=== PATIENT | female | born 1955 | race African-American/Black ===

== ENCOUNTER 2020-09-01 06:48 | Observation (INO) | payer MEDICARE, OTHER ==
[2020-08-28 16:15] LABS: BASOPHILS # (AUTO) 0.1 (0.0-0.1); BASOPHILS % 0.6 % (0.0-1.0); EOSINOPHILS # (AUTO) 0.1 (0.0-0.4); EOSINOPHILS % 1.3 % (0.0-6.0); HEMATOCRIT 43.3 % (34.2-44.1); LYMPHOCYTES # (AUTO) 2.2 (1.0-3.2); LYMPHOCYTES % 27.9 % (18.0-39.1); MEAN CORPUSCULAR HEMOGLOBIN 29.5 pg (28-32); MEAN CORPUSCULAR HGB CONC 32.3 g/dL (31-35); MEAN CORPUSCULAR VOLUME 91.2 fL (81-99); MONOCYTES # (AUTO) 0.5 (0.2-0.8); MONOCYTES % 5.9 % (4.4-11.3); NEUTROPHILS # (AUTO) 5.1 (2.1-6.9); NEUTROPHILS % 63.9 % (38.7-80.0); PLATELET COUNT 250 x10e3/uL (140-360); RED BLOOD COUNT 4.75 x10e6/uL (3.6-5.1); RED CELL DISTRIBUTION WIDTH 13.5 % (11.7-14.4)
[2020-08-28 16:30] LABS: BLOOD UREA NITROGEN 13 mg/dL (7-26); BUN/CREATININE RATIO 12 (6-25); CALCIUM 9.8 mg/dL (8.4-10.2); CARBON DIOXIDE 23 mmol/L (22-29); CHLORIDE 103 mmol/L (98-107); CREATININE, SERUM 1.08 mg/dL (0.57-1.11); EST GLOMERULAR FILTRATION RATE > 60 ML/MIN (60-); GLUCOSE 209 mg/dL (74-118); SODIUM 139 mmol/L (136-145)
--- NOTE | 2020-08-28 16:30 | Diagnostic Imaging Report ---
EXAMINATION: CHEST 2 VIEWS INDICATION: Pre-operative COMPARISON: None FINDINGS: LINES/TUBES:None LUNGS:The lungs are well-inflated. No focal consolidation or pulmonary edema. PLEURA:No pleural effusion or pneumothorax. MEDIASTINUM:The cardiomediastinal silhouette appears normal in size and shape. BONES/SOFT TISSUES:No acute osseous injury. ABDOMEN:No free air under the diaphragm. IMPRESSION: No focal pneumonia or pulmonary edema. Signed by: Donna Bishop MD on 08/28/2020 4:26 PM
[~2020-09-01] VITALS: Ht 170.2 cm; Wt 76.8 kg
[~2020-09-01 06:48] MED LIST: BUSPIRONE HCL15 MG PO; CELEBREX200 MG PO; JARDIANCE10 MG PO; LANTUS 3ML100 UNITS/ SC; LEVOTHYROXINE75 MCG PO; LISINOPRIL5 MG PO; METOPROLOL TART50 MG PO; MIRTAZAPINE15 MG PO; NOVOLOG100 UNIT/1 SC; QUETIAPINE FUM200 MG PO; SIMVASTATIN20 MG PO; ULTRAM50 MG PO
[2020-09-01] MEDS ORDERED: DEXAMETHASONE SOD PHOS 10 MG/1 ML VIAL ONE (07:03)
[2020-09-01] MEDS ORDERED: CELECOXIB 200 MG CAP ONE (07:03)
[2020-09-01] MEDS ORDERED: GABAPENTIN 300 MG CAP ONE (07:04)
[2020-09-01] MEDS ORDERED: CEFAZOLIN SOD 1 GM/NS 50ML 100 ML IV ONE (07:04)
[2020-09-01] MEDS ORDERED: BUPIVACAINE 7.5MG/ML /DEXTROSE 82.5MG/ML 2 ML AMP INJ ONE (07:21)
[2020-09-01] MEDS ORDERED: ROPIVACAINE 246.25 MG, EPINEPHRINE HCL 1:1000 1ML 0.5 MG, CLONIDINE HCL 0.08 MG, KETORO... INJ ONE ×5 (08:00)
[2020-09-01] MEDS ORDERED: VANCOMYCIN HCL 1,000 MG ONE (08:18)
[2020-09-01] MEDS ORDERED: SODIUM CHLORIDE 0.9% 500ML 500 ML ONE (08:19)
[2020-09-01] MEDS ORDERED: TRANEXAMIC ACID 1,000 MG/10 ML ML ONE (08:19)
[2020-09-01] MEDS ORDERED: KETOROLAC TROMETHAMINE 30 MG/ML VIAL IV PRN (09:45)
[2020-09-01] MEDS ORDERED: DOCUSATE SODIUM 100 MG CAP PO PRN (09:45)
[2020-09-01] MEDS ORDERED: ZOLPIDEM TARTRATE 5 MG TAB PO PRN (09:45)
[2020-09-01] MEDS ORDERED: ONDANSETRON HCL INJ 2MG/ML 2ML 2 MG/ML VIAL IV PRN (09:45)
[2020-09-01] MEDS ORDERED: HYDROCODONE/APAP 5MG-325MG TAB PO PRN (09:45)
[2020-09-01] MEDS ORDERED: DIPHENHYDRAMINE HCL INJ 50 MG/ML VIAL IV PRN (09:45)
[2020-09-01] MEDS ORDERED: ACETAMINOPHEN 650 MG SUPP PR PRN (09:45)
--- OUTSIDE RECORDS SUMMARY | 2020-09-01 10:33 | XMS REPORT | Clinical Summary ---
Author Author [facility] Organization [facility] Address Unknown Phone Unavailable Care Team Providers Care Perch Mender Name Role Phone Asked, No Pcp PCP Unavailable Allergies No Known Active Allergies Medications End Date Status Medication Sig Dispensed Refills Start Date Active OXcarbazepine (TRILEPTAL) TK 1 T PO BID 0 12/21 300 MG tablet 9 Active levothyroxine (SYNTHROID) TAKE ONE 0 02/18 75 mcg tablet TABLET BY 3 MOUTH ONE TIME DAILY Active cariprazine 6 mg capsule Take by 0 mouth. Active simvastatin (ZOCOR) 20 mg Take 20 mg by 0 tablet mouth nightly. 05/26/2021 Active lisinopriL (PRINIVIL) 5 Take 1 tablet 90 tablet 3 mg tabletIndications: (5 mg total) 0 Essential hypertension by mouth daily. Active blood-glucose meter To check 1 each 0 miscIndications: Type 2 sugars TID 0 diabetes mellitus with hyperglycemia, with long-term current use of insulin ([facility]) Active blood sugar diagnostic To test 200 strip 11 strips strip test sugars TID. 0 stripsIndications: Type 2 diabetes mellitus with hyperglycemia, with long-term current use of insulin ([facility]) 07/13/2021 Active empagliflozin 10 mg Take 1 tablet 30 tablet 3 06/21 tablet tabletIndications: (10 mg total) 0 Type 2 diabetes mellitus by mouth with hyperglycemia, with daily. long-term current use of insulin ([facility]) 07/13/2021 Active mirtazapine (REMERON) 30 Take 1 tablet 90 tablet 3 MG tabletIndications: (30 mg total) 0 Primary insomnia by mouth nightly. 07/13/2021 Active metoprolol succinate XL Take 1 tablet 90 tablet 3 (Toprol XL) 50 mg 24 hr (50 mg total) 0 tabletIndications: by mouth Essential hypertension daily. Active lancets miscIndications: Dx:E11.9 100 each 3 0 Type 2 diabetes mellitus As covered 0 with hyperglycemia, with per long-term current use of insurance. insulin (HCC) Use one lancet to check blood sugar levels 1-2 times daily. 05/26/2020 Discontinued (Reorder) metoprolol succinate XL Take 25 mg by 0 (TOPROL-XL) 25 mg 24 hr mouth daily. tablet 05/26/2020 Discontinued (Dose adjustmen t) lisinopriL (PRINIVIL) 5 Take 5 mg by 0 mg tablet mouth daily. 07/13/2020 Discontinued (Reorder) mirtazapine (REMERON) 30 Take 30 mg by 0 MG tablet mouth nightly. 07/13/2020 Discontinued (Dose adjustmen t) metoprolol succinate XL Take 1 tablet 30 tablet 3 (TOPROL-XL) 25 mg 24 hr (25 mg total) 0 tabletIndications: by mouth Essential hypertension daily. 07/16/2020 Discontinued (Reorder) lancets miscIndications: Dx:E11.9 100 each 3 0 Type 2 diabetes mellitus As covered 0 with hyperglycemia, with per long-term current use of insurance. insulin (HCC) Use one lancet to check blood sugar levels 1-2 times daily. 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 P atient also wanted to try PO medication. Sent rx for jardiance. HLD (hyperlipidemia) Hypertension Last Assessment & Plan: Hypertension is unchanged. Continue current treatment regimen. Inc rease dose of metoprolol further and c/w lisinopril. Blood pressure will be reassessed at th e next regular appointment. Encounters Care Team Description Date Type Specialty Sandy Dixon MA Type 2 diabetes mellitus with hyperglyce vinh, with long-term current use of insulin ([facility]) 07/16/2020 Orders Only Family Medicine Ezekiel Ayers MA Type 2 diabetes mellitus with hyperglyce vinh, with long-term current use of insulin ([facility]) (Primary Dx) 07/14/2020 Refill Family Medicine Sepideh Linda MD Preop examination (Primary Dx); Essential hypertension; Type 2 diabetes mellitus with hyperglycemia, with long-term current use of insulin (HCC); Primary insomnia 07/13/2020 Office Visit Family Medicine 07/13/2020 Travel 07/09/2020 Travel Sepideh Linda MD 07/03/2020 Telephone Family Medicine 06/01/2020 Travel Sepideh Linda MD Left leg pain (Primary Dx); Recurrent major depressive disorder, in partial remission (HCC); Type 2 diabetes mellitus with hyperglycemia, with long-term current use of insulin (HCC); 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; Essential hypertension; Anemia, unspecified type; Mixed hyperlipidemia 05/26/2020 Office Visit Family Medicine 05/26/2020 Travel 05/20/2020 Travel 05/12/2020 Travel 04/27/2020 Travel 2020 Travel after 09/01/2019 Surgical History Surgery Date Site/Laterality Comments APPENDECTOMY Medical History Medical History Date Comments Diabetes mellitus (HCC) Hypertension HLD (hyperlipidemia) Family History Medical History Relation Name Comments No Known Problems Father Diabetes Mother Hyperlipidemia Mother Diabetes Sister Heart disease Sister Hypertension Sister Relation Name Status Comments Brother Father Mother Alive Sister Alive Social History Date Tobacco Use Types Packs/Day Years Used Former Smoker Smokeless Tobacco: Never Used Drinks/Week oz/Week Comments Alcohol Use No Alcohol Habits Answer Date Recorded How often do you have a drink containing alcohol? Never 01/05/2019 How many drinks containing alcohol do you have on No t asked a typical day when you are drinking? How often do you have six or more drinks on one Not asked occasion? Sex Assigned at Date Recorded Not on file Last Filed Vital Signs Reading Time Taken Comments Vital Sign 146/85 07/13/2020 3:38 PM CDT Blood Pressure 66 07/13/2020 3:38 PM CDT Pulse 36.2 C (97.1 F) 07/13/2020 3:38 PM CDT Temperature - - Respiratory Rate 100% 07/13/2020 3:38 PM CDT Oxygen Saturation - - Inhaled Oxygen Concentration 78.1 kg (172 lb 2 oz) 07/13/2020 3:38 PM CDT Weight 170.2 cm (5' 7") 07/13/2020 3:38 PM CDT Height 26.96 07/13/2020 3:38 PM CDT Body Mass Index Plan of Treatment Care Team Description Date Type Specialty Sepideh Linda MD [id number] [id number] 09/07/2020 Office Visit Family Medicine Health Maintenance Due Date Last Done Comments DIABETIC RETINAL EYE EXAM 1955 DIABETIC FOOT EXAM 1965 CERVICAL CANCER SCREENING 1976 BREAST CANCER SCREENING 2005 COLONOSCOPY SCREENING 2005 SHINGLES VACCINES (#1) 2005 65+ PNEUMOCOCCAL VACCINE 2020 12/30/2011 (1 of 1 - PPSV23) INFLUENZA VACCINE 06/20/2020 URINE MICROALBUMIN 06/01/2021 06/01/2020 Procedures Comments Procedure Name Priority Date/Time Associated Diag nosis ECG 12-LEAD Routine 07/13/2020 Preop examinati on 4:14 PM CDT CBC WITH PLATELET AND Routine 06/01/2020 Anemia, unspecified type DIFFERENTIAL 11:00 AM CDT TSH REFLEX TO T4F Routine 06/01/2020 Hypothyroidi sm due to 11:00 AM CDT Hernando's thyroiditis LIPID PANEL Routine 06/01/2020 Mixed hyperlipi demia 11:00 AM CDT COMPREHENSIVE METABOLIC Routine 06/01/2020 Type 2 diabetes mellitus PANEL WITH ADJUSTED 11:00 AM CDT with hyperglycemi a, with CALCIUM long-term current use of insulin ([facility]) MICROALBUMIN / CREATININE Routine 06/01/2020 Type 2 diabetes mellitus URINE RATIO 11:00 AM CDT with hyperglycemia, with long-term current use of insulin ([facility]) HEMOGLOBIN A1C Routine 06/01/2020 Type 2 diabetes mellitus 11:00 AM CDT with hyperglycemia, with long-term current use of insulin ([facility]) after 09/01/2019 Results * ECG 12 lead (07/13/2020 4:14 PM CDT) Ventricular 64 [facility] rate Atrial rate 64 [facility] MS interval 158 [facility] QRSD interval 62 [facility] QT interval 388 [facility] QTC interval 400 [facility] P axis 1 72 [facility] QRS axis 1 0 [facility] T wave axis 45 [facility] EKG impression Normal sinus rhythm-Normal [facility] ECG-In automated comparison with ECG of 05-JAN-2019 05:25,-Vent. rate has decreased BY 48 BPM-Minimal criteria for Anterior infarct are no longer present-Criteria for Inferior infarct are no longer present- Specimen Narrative Performed At This result has an attachment that is n ot available. Performing Organization Address City/State/ZIP Code [place] Number [facility] [address] [place] [address] * Comprehensive Metabolic Panel with Adjusted Calcium (06/01/2020 11:00 AM CDT) Glucose 101 (H) 65 - 99 mg/dL [facility] Comment: [facility] Fasting [place] reference interval For someone without known diabetes, a glucose value between 100 and 125 mg/dL is consistent with prediabetes and should be confirmed with a follow-up test. BUN 12 7 - 25 mg/dL [facility] [place] Creatinine 0.89 0.50 - 0.99 mg/dL [facility] Comment: [facility] For patients >49 years of age, [place] the reference limit for Creatinine is approximately 13% higher for people identified as -Syrian. EGFR Non-Afr. 68 > OR = 60 [facility] Syrian mL/min/1.73m2 [facility] [place] EGFR 79 > OR = 60 [facility] [place] mL/min/1.73m2 [facility] [place] BUN/creatinine NOT APPLICABLE 6 - 22 (calc) [facility] ratio [facility] [place] Sodium 142 135 - 146 mmol/L [facility] [place] Potassium 4.8 3.5 - 5.3 mmol/L [facility] [place] Chloride 109 98 - 110 mmol/L [facility] [place] CO2 22 20 - 32 mmol/L [facility] [place] Calcium 9.6 8.6 - 10.4 mg/dL [facility] [place] Calcium 9.7 8.6 - 10.2 mg/dL [facility] (adjusted for (calc) DI[facility]NOSTICS albumin) [place] Protein 6.8 6.1 - 8.1 g/dL [facility] [place] Albumin, S 4.2 3.6 - 5.1 g/dL [facility] [place] Globulin, total 2.6 1.9 - 3.7 g/dL [facility] (calc) [facility] [place] Albumin/globuli 1.6 1.0 - 2.5 (calc) [facility] n ratio [facility] [place] Total bilirubin 0.4 0.2 - 1.2 mg/dL [facility] [place] Alkaline 143 37 - 153 U/L [facility] phosphatase [facility] [place] AST 14 10 - 35 U/L [facility] [place] ALT 8 6 - 29 U/L [facility] [place] Specimen Blood Resulting Agency Comment Performing Organization Information: Site ID: [id number] Name: [facility] Address: [address] [place], [place] [id number] Director: Bebeto Feng Performing Organization Address [facility] P k[place]ille Number [facility] [place] [phone] * TSH reflex to T4 (06/01/2020 11:00 AM CDT) TSH reflex to 0.64 0.40 - 4.50 mIU/L [facility] FT4 [facility] [place] Specimen Blood Resulting Agency Comment Performing Organization Information: Site ID: [id number] Name: [facility] Address: [address] [place] [id number] Director: Bebeto Feng Performing Organization Address [facility] P k[place] Number [facility] [employer] [place] [phone] * Microalbumin / creatinine urine ratio (06/01/2020 11:00 AM CDT) Creatinine, 250 20 - 275 mg/dL [facility] urine, random [facility] [place] Microalbumin, 0.5 See Note: mg/dL [facility] urine Comment: DIAGNOSTICS Reference Range: [place] Reference Range Not established Microalbumin/cr 2 <30 mcg/mg creat [facility] eatinine ratio Comment: DIAGNOSTICS The ADA defines abnormalities [place] in albumin excretion as follows: Category Result (mcg/mg creatinine) Normal <30 Microalbuminuria 30-299 Clinical albuminuria > OR = 300 The ADA recommends that at least two of three specimens collected within a 3-6 month period be abnormal before considering a patient to be within a diagnostic category. Specimen Urine Resulting Agency Comment Performing Organization Information: Site ID: [id number] Name: [facility] Address: [address] [place] [id number] Director: Bebeto Feng Performing Organization Address City/State/ZIP Code [place] Number [facility] [employer] [place] [address] [place] [phone] * CBC with platelet and differential (06/01/2020 11:00 AM CDT) WBC 10.9 (H) 3.8 - 10.8 [facility] Thousand/uL [facility] [place] RBC 4.41 3.80 - 5.10 [facility] Million/uL [facility] [place] HGB 13.4 11.7 - 15.5 g/dL [facility] [place] HCT 38.8 35.0 - 45.0 % [facility] [place] MCV 88.0 80.0 - 100.0 fL [facility] [place] MCH 30.4 27.0 - 33.0 pg [facility] [place] MCHC 34.5 32.0 - 36.0 g/dL [facility] [place] RDW 13.9 11.0 - 15.0 % [facility] [place] Platelet count 288 140 - 400 [facility] Thousand/uL [facility] [place] MPV 11.1 7.5 - 12.5 fL [facility] [place] Neutrophils, 7,445 1,500 - 7,800 [facility] absolute cells/uL [facility] [place] Lymphocytes, 2,780 850 - 3,900 cells/uL [facility] absolute [facility] [place] Monocytes, 567 200 - 950 cells/uL [facility] absolute [facility] [place] Eosinophils, 55 15 - 500 cells/uL [facility] absolute [facility] [place] Basophils, 55 0 - 200 cells/uL [facility] absolute [facility] [place] Neutrophils 68.3 % [facility] [place] Lymphocytes 25.5 % [facility] [place] Monocytes 5.2 % [facility] [place] Eosinophils 0.5 % [facility] [place] Basophils + RC 0.5 % [facility] [place] Specimen Blood Resulting Agency Comment Performing Organization Information: Site ID: [id number] Name: [facility] Address: [address] [place] [phone] Director: Bebeto Feng Performing Organization Address City/State/ZIP Code [place] Number [place] [address] [phone] * Hemoglobin A1c (06/01/2020 11:00 AM CDT) Hemoglobin A1C 8.2 (H) <5.7 % of total Hgb [facility] Comment: DI[facility] For someone without known [place] diabetes, a hemoglobin A1c value of 6.5% or greater indicates that they may have diabetes and this should be confirmed with a follow-up test. For someone with known diabetes, a value <7% indicates that their diabetes is well controlled and a value greater than or equal to 7% indicates suboptimal control. A1c targets should be individualized based on duration of diabetes, age, comorbid conditions, and other considerations. Currently, no consensus exists regarding use of hemoglobin A1c for diagnosis of diabetes for children. Specimen Blood Resulting Agency Comment Performing Organization Information: Site ID: SIM Name: [facility] Address: [address] [place] [phone] Director: Bebeto Feng Performing Organization Address [facility] P [place] Number [facility] [place] [phone] * Lipid panel (06/01/2020 11:00 AM CDT) [facility] Cholesterol, 169 <200 mg/dL [facility] total [facility] [place] HDL cholesterol 58 > OR = 50 mg/dL [facility] [place] Triglycerides 64 <150 mg/dL [facility] [place] LDL cholesterol 96 mg/dL (calc) [facility] calculated Comment: DIAGNOSTICS Reference range: <100 [place] Desirable range <100 mg/dL for primary prevention; <70 mg/dL for patients with CHD or diabetic patients with > or = 2 CHD risk factors. LDL-C is now calculated using the Oumar-Rachid calculation, which is a validated novel method providing better accuracy than the Friedewald equation in the estimation of LDL-C. Oumar HARDY et al. JACLYN. 2013;310(19): 3405-5408 (http://education.School Places.com/faq/LWZ651) Cholesterol/HDL 2.9 <5.0 (calc) [facility] ratio [facility] [place] Non-HDL 111 <130 mg/dL (calc) [facility] cholesterol Comment: DIAGNOSTICS For patients with diabetes [place] plus 1 major ASCVD risk factor, treating to a non-HDL-C goal of <100 mg/dL (LDL-C of <70 mg/dL) is considered a therapeutic option. Specimen Blood Resulting Agency Comment Performing Organization Information: Site ID: [id number] Name: [facility] Address: [address] [place] [phone] Director: Bebeto Feng Performing Organization Address [facility]/ZIP Code [place] Number [facility] [place] [phone] after 09/01/2019 Insurance Type Payer Benefit Subscriber ID Effective Phone Address Plan / Dates Group HMO [employer] TEXANPLUS [id number] 2020-P MCR resent Commercial AARP AARP [id number] 2020-P SUPPLEMENT resent Advance Directives For more information, please contact: [phone] Patient Tap Puller Explanation Type Date Recorded Advance Directives, Living Will and Medical Power of Lamp Shade Maker Advance Directives, 01/05/2019 7:15 AM Living Will and Medical Power of Lamp Shade Maker
--- OUTSIDE RECORDS SUMMARY | 2020-09-01 10:33 | XMS REPORT | Continuity of Care Document ---
Author Author [facility] t Organization [facility] Address [address] [place] [address] Phone Unavailable Care Team Providers Care Staging Technician Name Role Phone Asked, Pcp No PCP Unavailable ROXY TOPETE Attphys Unavailable Destiny DGUAN, Sandy Attphys Unavailable Andria DUGAN, Ezekiel Attphys Unavailable Alexei BLEDSOE, Marisa Bunn Attphys [phone] ODETA, SUSU Attphys Unavailable ODETASUSU Admphys Unavailable Payers Payer Name Policy Type Policy Number Effective Date Expiration Date S brendon TEXANPLUSTEXANPLUS [id number] 2019-PresentHMO [id number] 2020 00:00:00 Imer Iraheta AARPAARP [id number] 2019-PresentCommercial [id number] 2020 00:00:00 Imer Iraheta Problems Condition Name Condition Details Condition Category Status Onset Date Resolution Date Last Treatment Date Treating Clinician Comments Source 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 Patient also wanted to try PO medication. Sent rx for jardiance. Imer Iraheta HLD (hyperlipidemia) HLD (hyperlipidemia) Disease Active Imer Iraheta Hypertension Hypertension Disease Active Last Assessment & Plan: Hypertension is unchanged.Continue current treatment regimen. Increase dose of metoprolol further and c/w lisinopril.Blood pressure will be reassessed at the next regular appointment. Imer Iraheta Allergies, Adverse Reactions, Alerts This patient has no known allergies or adverse reactions. Family History Family Member Diagnosis Comments Start Date Stop Date Source Natural father No Known Problems Lelo kendrickdebo Iraheta Natural mother Diabetes [facility] Natural mother Hyperlipidemia [place] Natural sister Diabetes [facility] Natural sister Heart disease [facility] Natural sister Hypertension Imer Iraheta Social History Social Habit Start Date Stop Date Quantity Comments Source History SDOH Alcohol Std Drinks [facility] History SDOH Alcohol Binge [facility] Sex Assigned At Lelo elmira Iraheta Tobacco use and exposure 2020-07-13 00:00:00 2020-07-13 00:00:00 Nazanin castillo used Imer Iraheta Alcohol intake 2020-07-13 00:00:00 2020-07-13 00:00:00 Current non-drinker of alcohol (finding) [facility]il [facility]ze History SDOH Alcohol Frequency 2019-01-05 00:00:00 2019-01-05 00:00:0 0 1 Imer Iraheta Smoking Status Start Date Stop Date Source Former smoker 2020-07-13 00:00:00 2020-07-13 00:00:00 Imer Iraheta Medications Ordered Medication Name Filled Medication Name Start Date Stop Da te Current Medication? Ordering Clinician Indication Dosage Frequency Signature (SIG) Comments Components Source lancets [facility] [place] 2020-07-16 00:00:00 Yes Type 2 diabetes mellitus with hyperglycemia, with long-term current use of insulin ([facility]) Dx:E11.9As covered per insurance. Use one lancet to check blood sugar levels 1-2 times daily. Imer Iraheta lancets [facility] [place] 2020-07-14 00:00:00 2020-07-16 00:00:00 No Type 2 diabetes mellitus with hyperglycemia, with long-term current use of insulin ([facility]) Dx:E11.9As covered per insurance. Use one lancet to check blood sugar levels 1-2 times daily. Imer Iraheta mirtazapine (REMERON) 30 MG tablet 2020-07-13 16:08:31 202 00:00:00 No 30mg QD Take 30 mg by mouth nightly. Imer Iraheta blood-glucose meter [facility] [place] 2020-07-13 00:00:00 Yes Type 2 diabetes mellitus with hyperglycemia, with long-term current use of insulin ([facility]) To check sugars TID Imer Iraheta blood sugar diagnostic strips strip test strips 2020-07-13 0 0:00:00 Yes Type 2 diabetes mellitus with hyperglycemia, with long-term current use of insulin ([facility]) To test sugars TID. Kana Iraheta empagliflozin 10 mg tablet tablet 2020-07-13 00:00:00 2020 23:59:00 Yes Type 2 diabetes mellitus with hyperglyce vinh, with long-term current use of insulin ([facility]) 10mg QD Take 1 tablet (10 mg total) by mouth daily. Imer Iraheta mirtazapine (REMERON) 30 MG tablet 2020-07-13 00:00:00 2021-07-13 23:59:00 Yes Primary insomnia 30mg QD Take 1 tablet (30 mg total) by mouth nightly. Imer Iraheta metoprolol succinate XL (Toprol XL) 50 mg 24 hr tablet 2020-07-13 00:00:00 2021-07-13 23:59:00 Yes Essential hypertension 50mg QD Take 1 tablet (50 mg total) by mouth daily. Imer Iraheta metoprolol succinate XL (TOPROL-XL) 25 mg 24 hr tablet 2020-05-26 17:49:09 2020-05-26 00:00:00 No 25mg QD Take 25 mg by mouth daily. Imer Iraheta lisinopriL (PRINIVIL) 5 mg tablet 2020-05-26 17:41:04 2019 00:00:00 No 5mg QD Take 5 mg by mouth daily. Imer Iraheta cariprazine 6 mg capsule 2020-05-26 17:17:14 Yes Take by mouth. Imer Iraheta simvastatin (ZOCOR) 20 mg tablet 2020-05-26 17:17:14 Yes 20mg QD Take 20 mg by mouth nightly. Imer Iraheta lisinopriL (PRINIVIL) 5 mg tablet 2020-05-26 00:00:00 2020 23:59:00 No Essential hypertension 5mg QD Take 1 tablet (5 mg total) by mouth daily. Imer Iraheta metoprolol succinate XL (TOPROL-XL) 25 mg 24 hr tablet 2020-05-26 00:00:00 2020-07-13 00:00:00 No Essential hypertension 25mg QD Take 1 tablet (25 mg total) by mouth daily. Imer Iraheta OXcarbazepine (TRILEPTAL) 300 MG tablet 2019-01-02 00:00:00 Yes TK 1 T PO BID Imer Iraheta levothyroxine (SYNTHROID) 75 mcg tablet 2013-02-27 00:00:00 Yes TAKE ONE TABLET BY MOUTH ONE TIME DAILY Presley Iraheta Vital Signs Vital Name Observation Time Observation Value Comments Source Systolic blood pressure 2020-07-13 15:38:00 146 mm[Hg] Imer Iraheta Diastolic blood pressure 2020-07-13 15:38:00 85 mm[Hg] Imer Iraheta Heart rate 2020-07-13 15:38:00 66 /min Imer Iraheta Body temperature 2020-07-13 15:38:00 36.17 [place]iz[place] Body height 2020-07-13 15:38:00 170.2 cm Imer Iraheta Body weight 2020-07-13 15:38:00 78.075 kg Imer Iraheta BMI 2020-07-13 15:38:00 26.96 kg/m2 Imer Iraheta Oxygen saturation in Arterial blood by Pulse oximetry 07-13 15:38:00 100 /min Imer Iraheta Procedures Procedure Date / Time Performed Performing Clinician [facility] e ECG 12-LEAD 2020-07-13 16:14:44 Sepideh Linda HEMOGLOBIN A1C 2020-06-01 11:00:00 Sepideh Linda on [place] MICROALBUMIN / CREATININE URINE RATIO 2020-06-01 11:00:00 Sepideh Jorge COMPREHENSIVE METABOLIC PANEL WITH ADJUSTED CALCIUM 11:00:00 Sepideh Linda LIPID PANEL 2020-06-01 11:00:00 Sepideh Linda TSH REFLEX TO T4F 2020-06-01 11:00:00 Sepideh Linda ston [place] CBC WITH PLATELET AND DIFFERENTIAL 2020-06-01 11:00:00 Sepideh Linda Plan of Care Planned Activity Planned Date Details Comments Source Future Scheduled Test 2021-06-01 00:00:00 URINE MICROALBUMIN [code = URINE MICROALBUMIN] Imer Iraheta Future Scheduled Test 2020-06-20 00:00:00 INFLUENZA VACCINE [code = INFLUENZA VACCINE] Imer Iraheta Future Scheduled Test 2020 00:00:00 65+ PNEUMOCOCCAL V ACCINE (1 of - PPSV23) [code = 65+ PNEUMOCOCCAL VACCINE (1 of 1 - PPSV23)] Imer Iraheta Future Scheduled Test 2005 00:00:00 BREAST CANCER SCRE ENING [code = BREAST CANCER SCREENING] [facility] Future Scheduled Test 2005 00:00:00 COLONOSCOPY SCREEN ING [code = COLONOSCOPY SCREENING] [facility] Future Scheduled Test 2005 00:00:00 SHINGLES VACCINES (#1) [code = SHINGLES VACCINES (#1)] Imer Iraheta Future Scheduled Test 1976 00:00:00 Screening for lee gnant neoplasm of cervix (procedure) [code = 306979851] [facility] [place] [facility] Future Scheduled Test 1965 00:00:00 DIABETIC FOOT EXAM [code = DIABETIC FOOT EXAM] [facility] Future Scheduled Test 1955 00:00:00 DIABETIC RETINAL E YE EXAM [code = DIABETIC RETINAL EYE EXAM] Imer Iraheta Encounters Start Date/Time End Date/Time Encounter Type Admission Type [facility] Care Department Encounter ID Source 2020-07-13 00:00:00 2020-07-13 00:00:00 Outpatient [facility] [id number] Imer Iraheta 2020-06-01 00:00:00 2020-06-01 00:00:00 Outpatient DADABHOY, IRF [facility] [id number] [facility] 2020-05-26 00:00:00 2020-05-26 00:00:00 Outpatient [facility]ABHOY, [facility] [id number] [facility] 2017-02-27 00:00:00 2017-02-27 00:00:00 Emergency [facility] [id number] [facility] 2016-10-28 00:00:00 2016-10-28 00:00:00 Outpatient [facility] [id number] Imer Iraheta Results Test Description Test Time Test Comments Results Result Comments Source CHEST 2 VIEWS 2020-08-28 16:26:00 [place] [address] Patient Name: DIAMOND MAURICIO MR #: [id number] : 1955 Age/Sex: 65/F Req #: [id number] Adm Physician: Ordered by: ROXY TOPETE MD Report #: [id number] Location: OR Room/Bed: Procedure: [id number] DX/CHEST 2 VIEWS Exam Date: 08/28/20 Exam Time: 1535 REPORT STATUS: Signed EXAMINATION: CHEST 2 VIEWS INDICATION: Pre-operative COMPARISON: None FINDINGS: LINES/TUBES:None LUNGS:The lungs are well-inflated. No focal consolidation or pulmonary edema. PLEURA:No pleural effusion or pneumothorax. MEDIASTINUM:The cardiomediastinal silhouette appears normal in size and shape. BONES/SOFT TISSUES:No acute osseous injury. ABDOMEN:No free air under the diaphragm. IMPRESSION: No focal pneumonia or pulmonary edema. Signed by: Nick Coombs MD on 08/28/2020 4:26 PM Dictated By: NICK COOMBS MD 25 Transcribed By: JUDIT on 08/28/201625 COPY TO: ROXY TOPETE MD ECG 12 lead 2020-08-18 09:49:17 Test Item Ventricular rate (test code = 253) 64 Atrial rate (test code = 255) 64 MA interval (test code = 266) 158 QRSD interval (test code = 260) 62 QT interval (test code = 264) 388 QTC interval (test code = 265) 400 P axis 1 (test code = 267) 72 QRS axis 1 (test code = 268) 0 T wave axis (test code = 270) 45 EKG impression (test code = 273) Normal sinus rhythm-N ormal ECG-In automated comparison with ECG of 05-JAN-2019 05:25,-Vent. rate has decreased BY 48 BPM- Minimal criteria for Anterior infarct are no longer present-Criteria for Inferio r infarct are no longer present- Cantil MethodistLipid [id number] 15:31:00* Test Item Value Reference Range Interpretation Comments Cholesterol, total (test code = 2093-3) 169 mg/dL <200 HDL cholesterol (test code = 2085-9) 58 mg/dL > OR = 50 Triglycerides (test code = 2571-8) 64 mg/dL <150 LDL cholesterol calculated (test code = 74872-9) 96 mg/dL (calc) Reference range: <100 Desirable range <100 mg/dL for primary prevention; <70 mg/dL for patients with CHD or diabetic patients with > or = 2 CHD risk factors. LDL-C is now calculated using the Kirstie calculation, which is a validated novel method providing better accuracy than the Friedewald equation in the estimation of LDL-C. Oumar HARDY et al. JACLYN. 2013;310(19): 6535-0988 (http:/ /education.[employer]/faq/LQC508) Cholesterol/HDL ratio (test code = 9830-1) 2.9 <5.0 (calc) Non-HDL cholesterol (test code = 71262-2) 111 <130 mg/dL ( calc) For patients with diabetes plus 1 major ASCVD risk factor, treating to a non-HDL-C goal of <100 mg/dL (LDL-C of <70 mg/dL) is considered a therapeutic option. GIFTY (test code = RAC) Performing Organization Info rmation: Site ID: RGA Name: [facility] Address: [address] [place] [phone] Director: Bebeto Feng Cantil MethodistHemoglobin [id number] 15:31:00* Test Item Value Reference Range Interpretation Comments Hemoglobin A1C (test code = 4548-4) 8.2 <5.7 % of total Hg b H For someone without known diabetes, a hemoglobin A7evfgax of 6.5% or greater indicates that they [...] considerations. Currently, no consensus exists regarding use ofhemoglobin A1c for diagnosis of diabetes for children. RAC (test code = RAC) Performing Organization Info rmation: Site ID: RGA Name: [facility] Address: [address] [place] [id number] Director: Bebeto Feng Lab Interpretation (test code = 24567-9) Abnormal Cantil MethodistCB with platelet and [id number] 15:31:00* Test Item Value Reference Range Interpretation Comments WBC (test code = 6690-2) 10.9 3.8- 10.8 Thousand/uL H RBC (test code = 789-8) 4.41 3.80- 5.10 Million/uL HGB (test code = 718-7) 13.4 g/dL 11.7-15.5 HCT (test code = 4544-3) 38.8 % 35-45 MCV (test code = 787-2) 88.0 fL 80-100 MCH (test code = 785-6) 30.4 pg 27-33 MCHC (test code = 786-4) 34.5 g/dL 32-36 RDW (test code = 788-0) 13.9 % 11-15 Platelet count (test code = 777-3) 288 140- 400 Thousand/u L MPV (test code = 776-5) 11.1 fL 7.5-12.5 Neutrophils, absolute (test code = 751-8) 7445 1,500 - 7,80 0 cells/uL Lymphocytes, absolute (test code = 731-0) 2780 850- 3,900 c ells/uL Monocytes, absolute (test code = 742-7) 567 200- 950 cells /uL Eosinophils, absolute (test code = 711-2) 55 15- 500 cell s/uL Basophils, absolute (test code = 704-7) 55 0- 200 cells/u L Neutrophils (test code = 770-8) 68.3 % Lymphocytes (test code = 736-9) 25.5 % Monocytes (test code = 5905-5) 5.2 % Eosinophils (test code = 713-8) 0.5 % Basophils + RC (test code = 706-2) 0.5 % RAC (test code = RAC) Performing Organization Info rmation: Site ID: SIM Name: [facility] Address: [address] [place] [phone] Director: Bebeto Feng Lab Interpretation (test code = 83866-2) Abnormal Cantil MethodistMicroalbumin / creatinine urine [id number] 15:31:00* Test Item Value Reference Range Interpretation Comments Creatinine, urine, random (test code = 2161-8) 250 mg/dL 20-275 Microalbumin, urine (test code = 35881-3) 0.5 mg/dL See Note: Reference Range:Reference RangeNot established Microalbumin/creatinine ratio (test code = 9318-7) 2 <30 mcg/mg creat The ADA defines abnormalities in albuminexcretion as follows: Category Result (mcg/mg creatinine) Normal <30Microalbuminuria 30-299 Clinical albuminuria > OR = 300 The ADA recommends that at least two of threespecimens collected within a 3-6 month period beabnormal before considering a patient to bewithin a diagnostic category. RAC (test code = RAC) Performing Organization Info rmation: Site ID: SIM Name: [facility] Address: [address] [place] [address] Director: Bebeto Feng [facility] reflex to [id number] 15:31:00* Test Item Value Reference Range Interpretation Comments TSH reflex to FT4 (test code = 3016-3) 0.64 0.40- 4.50 mIU/ L RAC (test code = RAC) Performing Organization Info rmation: Site ID: A Name: [facility] Address: [address] [place] [address] Director: Bebeto Feng Cantil DruzeComprehensive Metabolic Panel with Adjusted [id number] 15:31:00* Test Item Value Reference Range Interpretation Comments Glucose (test code = 2345-7) 101 mg/dL 65-99 H Fasting reference interval For someone without known diabetes, a glucose valuebetween 100 and 125 mg/dL is consistent withprediabetes and should be confirmed with afollow-up test. BUN (test code = 3094-0) 12 mg/dL 7-25 Creatinine (test code = 2160-0) 0.89 mg/dL 0.5-0.99 For patients >49 years of age, the reference limitfor Creatinine is approximately 13% higher for peopleidentified as -[place]. EGFR Non-Afr. [place]er (test code = 2775) 68 > OR = 60 mL /min/1.73m2 EGFR (test code = 83490-3) 79 > OR = 60 mL/min/1.73m2 BUN/creatinine ratio (test code = 3097-3) NOT APPLICABLE 6- 22 (alex c) Sodium (test code = 2951-2) 142 mmol/L 135-146 Potassium (test code = 2823-3) 4.8 mmol/L 3.5-5.3 Chloride (test code = 5-0) 109 mmol/L 98-110 CO2 (test code = 2027-9) 22 mmol/L 20-32 Calcium (test code = 72529-9) 9.6 mg/dL 8.6-10.4 Calcium (adjusted for albumin) (test code = 56194-7) 9.7 8.6- 10.2 mg/dL (calc) Protein (test code = 2885-2) 6.8 g/dL 6.1-8.1 Albumin, S (test code = 1751-7) 4.2 g/dL 3.6-5.1 Globulin, total (test code = 76157-7) 2.6 1.9- 3.7 g/dL (c alc) Albumin/globulin ratio (test code = 1759-0) 1.6 1.0- 2.5 ( calc) Total bilirubin (test code = 1974-) 0.4 mg/dL 0.2-1.2 Alkaline phosphatase (test code = 6768-6) 143 U/L 37-153 AST (test code = 1920-8) 14 U/L 10-35 ALT (test code = 1742-6) 8 U/L 6-29 RAC (test code = RAC) Performing Organization Info rmation: Site ID: RGA Name: [facility] Address: [address] [place] [phone] Director: Bebeto Feng Lab Interpretation (test code = 04912-0) Abnormal Imer Iraheta
--- NOTE | 2020-09-01 10:41 | Diagnostic Imaging Report ---
Exam: Pelvis, frontal view History: Postop hip replacement Comparison: None. Findings: See impression Impression: Postoperative radiograph from total left hip arthroplasty shows intact acetabular and femoral components. No periprosthetic displaced fracture. Expected skin tasneem and subcutaneous gas. Signed by: Dr. Omar Morse M.D. on 09/01/2020 10:37 AM
[2020-09-01 11:10] VITALS: BP 124/79
[2020-09-01 11:30] VITALS: BP 124/79
--- NOTE | 2020-09-01 11:30 | NUR ---
PT TO THE FLOOR, VITALS WNL, 0 C/O PAIN. PT DENIES NEEDS AT THIS TIME.
[2020-09-01] MEDS: SODIUM CHLORIDE 0.9% 1000ML 1,000 ML IV SCH ×2 (11:45→21:45)
[2020-09-01] MEDS: HYDROCODONE/APAP 7.5MG-325MG 1 EA TAB PO PRN ×3 (12:17→21:45)
--- NOTE | 2020-09-01 13:29 | Operative Report ---
DATE OF PROCEDURE: 09/01/2020 SURGEON: Omar Cano MD ASSOCIATE PROFESSOR OF LIBRARY SCIENCE: Robinson Grijalva PA-C. PREOPERATIVE DIAGNOSIS: Osteoarthritis, left hip. POSTOPERATIVE DIAGNOSIS: Osteoarthritis, left hip. PROCEDURE: Left total hip arthroplasty. INDICATIONS: The patient is a 65-year-old lady, who has end-stage arthritis of both hips. She has failed conservative management and would like to proceed with a left total hip replacement. The risks and benefits have been discussed. All of her questions have been answered. She has a slight pelvic tilt and an apparent limb length discrepancy with her left lower extremity being slightly longer than the right. I explained this will persist until we are able to complete her right total hip replacement. She states she understands. PROCEDURE IN DETAIL: The patient was brought to the operating room and given a spinal anesthetic. She received prophylactic antibiotics and tranexamic acid in the holding area. She was positioned in the right lateral decubitus position. Her left hip was prepped and draped in a sterile manner. A preoperative time-out was performed. A posterior approach was made to the left hip. Hemostasis was obtained with electrocautery. The deep fascia was incised. A self-retaining Charnley retractor was placed. The posterior capsule was carefully exposed. The hip had no internal rotation and was significantly contracted. Further hemostasis around the posterior capsule was obtained with electrocautery. A portion of the short external rotators and posterior capsule were released. The hip was dislocated and an oscillating saw was used to resect the femoral head. Complete loss of articular cartilage on the weightbearing surface of the femoral head was noted. Acetabular retractors were carefully placed. The socket was then sequentially reamed up to 53 mm. This accomplished bleeding hemispherical cancellous bone. The hip was thoroughly irrigated several times with a shower tip pulsatile lavage. A Sreekanth/Biomet 54 mm outer diameter OsseoTi socket was then impacted into place. Excellent fixation was felt to be obtained. Fixation was augmented with a single 20 mm screw. A highly cross-linked polyethylene liner with a 36 mm inner diameter was then seated into place. Care was taken to make sure that there was no evidence of soft tissue interposition. An anterior osteophyte was then removed with a curved osteotome. The socket was packed with a moistly soaked lap sponge and attention was directed towards the proximal femur. A box cutting osteotome and taper pin reamer were used to establish entry to the femoral canal. The Taperloc broaches were impacted. A size 10 stem had good canal fill and rotational stability for trial reduction. A standard 36 mm head was felt to restore appropriate limb length and provide excellent stability through a full arc of motion. The trial implants were removed. A 100 mL premixed pericapsular RON injection was placed into the surrounding soft tissue. The Taperloc stem was impacted into place. A standard 36 mm head and neck were then seated onto a clean and dry stem. A final reduction was performed. The posterior capsule was repaired with #2 Ethibond. The hip was thoroughly irrigated. 500 mg of vancomycin powder were then sprinkled into the wound. The deep fascia was closed with interrupted #2 Ethibond. The skin was closed with subcuticular Vicryl and tasneem. A sterile Aquacel bandage was applied. She was transported to the recovery room in stable condition. Estimated blood loss was 50 mL. At the end of the procedure, all needle and sponge counts were correct. Omar Cano MD DR/GERTRUDIS /[id number]
[2020-09-01] MEDS ORDERED: MIDAZOLAM HCL 2 MG/2 ML VIAL ONE (13:52)
[2020-09-01] MEDS ORDERED: FENTANYL CITRATE/PF 100MCG/2 ML INJ ONE (13:52)
--- NOTE | 2020-09-01 16:36 | NUR ---
DR MAY OFFICE PREARRANGED FOLLOWING DISCHARGE PLAN OF:HOME [address] [facility] WITH [facility] CONFIRMED WITH MARIJA [phone] DME CPM PROVIDED BY THERAPY SUPPLY MEE GARG VIA EMAIL, PROVIDED BRI OBTAINED SIGNATURES AND WILL PUT IN PACU
[2020-09-01 16:40] VITALS: BP 126/77
[2020-09-01] MEDS: ASPIRIN 325 MG TAB PO SCH (16:48)
[2020-09-01] MEDS: CEFAZOLIN SOD 1 GM/NS 50ML 50 ML IV SCH (16:48)
[2020-09-01] MEDS: CELECOXIB 200 MG CAP PO SCH (16:48)
[2020-09-01 17:29] LABS: BASOPHILS % 0.3 % (0.0-1.0); HEMATOCRIT 39.3 % (34.2-44.1); HEMOGLOBIN 12.5 g/dL (12.0-16.0); LYMPHOCYTES % 6.6 % (18.0-39.1); MEAN CORPUSCULAR HEMOGLOBIN 29.8 pg (28-32); MEAN CORPUSCULAR HGB CONC 31.8 g/dL (31-35); MEAN CORPUSCULAR VOLUME 93.8 fL (81-99); MONOCYTES # (AUTO) 0.6 (0.2-0.8); MONOCYTES % 4.2 % (4.4-11.3); NEUTROPHILS # (AUTO) 13.4 (2.1-6.9); NEUTROPHILS % 88.4 % (38.7-80.0); PLATELET COUNT 271 x10e3/uL (140-360); RED BLOOD COUNT 4.19 x10e6/uL (3.6-5.1); RED CELL DISTRIBUTION WIDTH 13.3 % (11.7-14.4)
[2020-09-01] MEDS ORDERED: LIDOCAINE HCL 2% LOCAL INJ 5 ML SDV VIAL INJ ONE (17:42)
[2020-09-01] MEDS ORDERED: PROPOFOL IV EMULSION 10 MG/ML 20 ML VIAL ONE (17:42)
[2020-09-01] MEDS ORDERED: ONDANSETRON HCL INJ 2MG/ML 2ML 2 MG/ML VIAL ONE (17:42)
[2020-09-01] MEDS ORDERED: SEVOFLURANE INHAL SOLN 250 ML PEN BTL ONE (17:42)
[2020-09-01 17:49] LABS: ANION GAP 14.8 mmol/L (8-16); BLOOD UREA NITROGEN 19 mg/dL (7-26); BUN/CREATININE RATIO 18 (6-25); CALCIUM 9.1 mg/dL (8.4-10.2); CARBON DIOXIDE 19 mmol/L (22-29); CHLORIDE 108 mmol/L (98-107); CREATININE, SERUM 1.07 mg/dL (0.57-1.11); EST GLOMERULAR FILTRATION RATE > 60 ML/MIN (60-); GLUCOSE 227 mg/dL (74-118); POTASSIUM 4.8 mmol/L (3.5-5.1); SODIUM 137 mmol/L (136-145)
--- NOTE | 2020-09-01 18:32 | NUR ---
Patient will benefit from a RW and a BSC for home use. Addendum: 09/01/20 at 1833 by Alexandr Pat PT Amended: Links added.
--- NOTE | 2020-09-01 19:40 | NUR ---
BEDSIDE SHIFT REPORT RECEIVED FROM DAY RN. PT IS ALERT AND ORIENTED X3. RESPIRATIONS ARE EVEN AND UNLABORED. LEFT HIP DRESSING IS DRY AND INTACT. PT AMBULATE TO BATHROOM WITH ONE ASSIST USING WALKER. SL 20 G IN RT HAND. SITE HEALTHY. PT DENIES PAIN. CALL LIGHT WITHIN REACH. BED IN LOW POSITION.
[2020-09-01] MEDS ORDERED: DEXTROSE 50% SYRINGE 50 ML IV PRN (19:45)
[2020-09-01 20:00] VITALS: BP 117/65
[2020-09-01 21:00] VITALS: BP 117/65
[2020-09-01] MEDS ORDERED: QUETIAPINE FUMARATE 100 MG TAB PO SCH (21:00)
[2020-09-01] MEDS ORDERED: SIMVASTATIN 20 MG TAB PO SCH (21:00)
[2020-09-01] MEDS: INSULIN LISPRO 100 UNIT/1 ML 3ML VIAL SQ SCH (21:00)
[2020-09-01] MEDS ORDERED: MIRTAZAPINE 15 MG TAB PO SCH (21:00)
[2020-09-01] MEDS: BUSPIRONE HCL 5 MG TAB PO SCH (21:33)
[2020-09-01] MEDS: INSULIN GLARGINE 100 UNITS/ML VIAL SC SCH (22:47)
[2020-09-02] VITALS: BP 121/66
[2020-09-02] MEDS: CEFAZOLIN SOD 1 GM/NS 50ML 50 ML IV SCH ×2 (00:33→08:19)
[2020-09-02] MEDS ORDERED: SODIUM CHLORIDE 0.9% 250ML 250 ML ONE (00:55)
[2020-09-02] MEDS ORDERED: ACETAMINOPHEN 1000 MG/100 ML 100 ML IV ONE (01:11)
[2020-09-02] MEDS: HYDROCODONE/APAP 7.5MG-325MG 1 EA TAB PO PRN ×3 (03:02→14:07)
[2020-09-02 04:00] VITALS: BP 116/71
--- NOTE | 2020-09-02 04:00 | NUR ---
PT AMBULATE TO BATHROOM WITH ONE ASSIST WHILE USING WALKER. PT C/O OF PAIN AFTER THIS. ICE TO LEFT HIP. NORCO AND IV TYLENOL GIVEN FOR PAIN. PAIN SLOWLY DECREASE AND PT ABLE TO SLEEP. WILL MONITOR FOR PAIN CONTROL
[2020-09-02 05:54] LABS: HEMATOCRIT 32.5 % (34.2-44.1); HEMOGLOBIN 10.9 g/dL (12.0-16.0)
--- NOTE | 2020-09-02 07:00 | NUR ---
BEDSIDE SHIFT REPORT RECEIVED FROM BOW REPAIRER CUSTOM RN. PT DENIES NEEDS.
[2020-09-02] MEDS: INSULIN LISPRO 100 UNIT/1 ML 3ML VIAL SQ SCH ×2 (07:30→12:14)
[2020-09-02] MEDS: SODIUM CHLORIDE 0.9% 1000ML 1,000 ML IV SCH (07:45)
[2020-09-02 07:50] VITALS: BP 118/70
[2020-09-02] MEDS: BUSPIRONE HCL 5 MG TAB PO SCH ×2 (08:20→14:06)
[2020-09-02] MEDS: CELECOXIB 200 MG CAP PO SCH (08:20)
[2020-09-02] MEDS: ASPIRIN 325 MG TAB PO SCH (08:20)
[2020-09-02 08:52] VITALS: BP 118/70
[2020-09-02] MEDS ORDERED: LEVOTHYROXINE SODIUM 75 MCG TAB PO SCH (09:00)
[2020-09-02] MEDS ORDERED: LISINOPRIL 2.5 MG TAB PO SCH (09:00)
[2020-09-02] MEDS ORDERED: METOPROLOL TARTRATE 50 MG TAB PO SCH (09:00)
--- NOTE | 2020-09-02 09:34 | Consultation ---
DATE OF CONSULTATION: REASON FOR CONSULTATION: Medical management. The patient's home medication was resumed post operation. The patient was stable. Her blood sugar remained stable. She is on insulin. HISTORY OF PRESENT ILLNESS: This is a 65-year-old female with status post left total hip replacement. The patient is stable postoperatively. She was in pain, but pain medication appropriately given. The patient is doing much better. She does not have any chest pain or shortness of breath. The patient is comfortable. Getting physical therapy. PAST MEDICAL HISTORY: Diabetes type 2, on insulin therapy, hypertension, hypothyroidism, major depression, anxiety disorder, insomnia, and osteoarthritis. PAST SURGICAL HISTORY: Status post left hip arthroplasty and right knee surgery. SOCIAL HISTORY: The patient does not smoke or use alcohol. No regular drugs. ALLERGIES: NO KNOWN ALLERGIES. HOME MEDICATIONS: The patient is on buspirone, Celebrex, Jardiance, NovoLog, insulin Lantus, levothyroxine, lisinopril, metoprolol tartrate, Remeron, Seroquel, and simvastatin. PHYSICAL EXAMINATION: VITAL SIGNS: Temperature is 98, blood pressure is 118/70, pulse rate is 85, and respirations 18. GENERAL: The patient is not in acute distress. She is awake. HEENT: Normocephalic and atraumatic. She is anicteric. NECK: Supple grossly. PULMONARY: Clear. CARDIOVASCULAR: Regular rate and rhythm. ABDOMEN: Soft and unremarkable. EXTREMITIES: Status post left hip replacement. NEUROLOGIC: No focal deficit. LABORATORY DATA: Hemoglobin and hematocrit are 10.9 and 32.5. Chemistry; sodium is 137, potassium 4.8, chloride 108, bicarb 19, BUN 19, creatinine 1.0, and glucose is 227. Calcium is 9.1. IMPRESSION: 1. Status post left total hip replacement. 2. Slight anemia, most likely blunt anemia from stress and surgical intervention. 3. Diabetes type 2, on insulin therapy and oral medication. 4. Hypertension, dyslipidemia, anxiety and depression, stable. PLAN: Continue with home medication, which was done. When the patient go home, she will continue with her home medication. She is on insulin sliding scale coverage. Continue with postop medication. Physical therapy. DVT prophylaxis with aspirin 325 mg twice a day. The patient is otherwise stable. Continue with medical management. MD JESSICA Auguste/GERTRUDIS /[id number]
[2020-09-02] MEDS: INSULIN GLARGINE 100 UNITS/ML VIAL SC SCH (09:43)
[2020-09-02] MEDS ORDERED: ACETAMINOPHEN 1000 MG/100 ML IV PRN (09:45)
--- NOTE | 2020-09-02 10:21 | NUR ---
SPOKE TO SURENDRA AND PT ABOUT SCRIPTS. KNOWLEDGE SHARED THAT THEY HAVE BEEN SENT TO PHARMACY BY DR. TOPETE'S OFFICE
[2020-09-02 11:50] VITALS: BP 123/69
[2020-09-02] MEDS ORDERED: ONDANSETRON HCL 4 MG ORAL DISINTEGRATING TAB PO PRN (12:15)
== END 2020-09-02 14:45 | disposition home health service (06) ==
LOC: OR 06:48 → PACU V 09:41 → MED/SURG 11:04
PROVIDERS: ADMIT Specialist; ATTEND Specialist
DX: M16.0 Bilateral primary osteoarthritis of hip (principal); E11.9 Type 2 diabetes mellitus without complications; I10 Essential (primary) hypertension; D64.9 Anemia, unspecified; Z79.4 Long term (current) use of insulin; E78.5 Hyperlipidemia, unspecified; F41.9 Anxiety disorder, unspecified; F32.9 Major depressive disorder, single episode, unspecified; Z82.61 Family history of arthritis; Z80.9 Family history of malignant neoplasm, unspecified; Z83.3 Family history of diabetes mellitus; Z01.810 Encounter for preprocedural cardiovascular examination; Z01.812 Encounter for preprocedural laboratory examination; Z01.818 Encounter for other preprocedural examination; Z11.59 Encounter for screening for other viral diseases
CPT/HCPCS: 27130; 36415 ×3; 71046; 72170; 80048 ×2; 82948 ×2; 85014; 85018; 85025 ×2; 86850; 86900; 86920; 93005; 96372; 97116 ×2; 97139; 97161; 97530 ×2; G0378 ×2; J0131; J0171; J0690 ×2; J1100; J1815; J1885; J2001; J2250; J2405; J2704; J2795; J3010; J3370; J7030; J7040; J7050; U0002